=== PATIENT | female | born 1975 | race Two or more races ===

== ENCOUNTER → 2024-10-01 | Outpatient (CLI) | payer MEDICAID, SELFPAY ==
--- NOTE | 2024-10-01 09:00 | XR_ITS ---
Examination: MRI abdomen with intravenous contrast. MRI abdomen without intravenous contrast. Date and time of exam: October 01, 2024 1006 hours INDICATIONS: Intermittent abdominal pain nausea beginning February 2023 Technique: Multiple axial, sagittal and coronal sections of the abdomen obtained. Transverse images, TR 6020, TE 107. T1 weighted transverse images, TR 582, TE 9.5. T2-weighted sagittal images, TR 4000, TE 105. T2-weighted sagittal images, TR 4000, TE 5. Coronal images, TR 4210, TE 107. Axial and coronal images are obtained post 19 cc intravenous injection, gadolinium. Findings: No focal liver lesions or intrahepatic biliary tract dilatation Gallbladder is not visualized. Normal common hepatic common bile duct No pancreatic mass or peripancreatic edema Normal adrenal glands. No hydronephrosis Aorta normal size No ascites Postcontrast images demonstrate no abnormal liver splenic or renal enhancement Bowel gas pattern unremarkable IMPRESSION: No abdominal mass Normal common hepatic common bile duct, no biliary tract dilatation
== END | disposition home or self-care (01) ==
PROVIDERS: PCP Nurse Practitioner Family; Referring Provider Nurse Practitioner Family; Visit Provider Nurse Practitioner Family
DX: R10.9 Unspecified abdominal pain (principal)
CPT/HCPCS: 74183; A9577

== ENCOUNTER → 2024-12-30 | Outpatient (CLI) | payer MEDICAID, SELFPAY ==
--- NOTE | 2024-12-30 09:30 | XR_ITS ---
Examination: Abdomen sonogram, complete Date and time of exam: December 30, 2024, 1021 hours INDICATIONS: Elevated liver enzymes on laboratory examination performed 2 weeks ago, cholecystectomy. Technique: Multiple real-time grayscale transabdominal sonographic images of the abdomen have been obtained. Findings: Absent gallbladder Normal common bile duct 0.3 cm Pancreatic head 2.1 cm Aorta not enlarged Liver 12.5 cm fatty infiltration Normal hepatopetal portal venous flow Patent IVC Right kidney 8.9 cm renal cortex 1.7 cm Left kidney 9.8 cm renal cortex 2.0 cm cyst Mild renal scar formation Spleen 9.7 cm IMPRESSION: Normal common bile duct Liver normal size fatty infiltration
== END | disposition home or self-care (01) ==
PROVIDERS: PCP Nurse Practitioner Family; Referring Provider Student in an Organized Health Care Education/Training Program; Visit Provider Student in an Organized Health Care Education/Training Program
DX: K76.0 Fatty (change of) liver, not elsewhere classified (principal)
CPT/HCPCS: 76700